=== PATIENT | male | born 1990 | race Hispanic/Latino ===

== ENCOUNTER 2017-08-03 03:52 | Inpatient (IN) | payer MEDICAID ==
[2017-08-03 04:01] VITALS: O2SAT 97
--- NOTE | 2017-08-03 04:09 | C.PDOC ---
History Of Present Illness 27 year old male who presents to the ER as a transfer for psychiatric admission. Patient is medically cleared, denies physical complaints at this time. Chief Complaint (Nursing): Psychiatric Evaluation History Per: Patient History/Exam Limitations: no limitations Onset/Duration Of Symptoms: Days Current Symptoms Are (Timing): Still Present Suicide/Self Injury Attempted (Context): None Modifying Factor(s): None Associated Symptoms: denies: Depression, Suicidal Thoughts, Suicidal Plan Involuntary Hold By: None Recent travel outside of the [place]: No Past Medical History Reviewed: Historical Data, Nursing Documentation, Vital Signs Vital Signs: Last Vital Signs Temp 98 F 08/03/17 03:59 Pulse 84 08/03/17 03:59 Resp 18 08/03/17 03:59 BP 130/86 08/03/17 03:59 Pulse Ox 97 08/03/17 04:09 - Medical History PMH: Bipolar Disorder, Schizophrenia Surgical History: No Surg Hx Family History: States: Unknown Family Hx - Social History Hx Alcohol Use: Yes Hx Substance Use: No - Immunization History Hx Tetanus Toxoid Vaccination: No Hx Influenza Vaccination: No Hx Pneumococcal Vaccination: No Review Of Systems Constitutional: Negative for: Fever, Chills Gastrointestinal: Negative for: Nausea, Vomiting, Diarrhea Psych: Positive for: Other (Bipolar) Physical Exam - Physical Exam Appears: Non-toxic, No Acute Distress Skin: Normal Color, Warm, Dry Head: Atraumatic, Normacephalic Oral Mucosa: Moist Chest: Symmetrical, No Tenderness Cardiovascular: Rhythm Regular, No Murmur Respiratory: Normal Breath Sounds, No Rales, No Rhonchi, No Wheezing Gastrointestinal/Abdominal: Soft, No Tenderness Neurological/Psych: Oriented x3, Normal Speech, Normal Cognition ED Course And Treatment O2 Sat by Pulse Oximetry: 97 (Room Air) Pulse Ox Interpretation: Normal Disposition Discussed With : Gerri Dhillon Doctor Will See Patient In The: Hospital Counseled Patient/Family Regarding: Diagnosis - Disposition Disposition: HOSPITALIZED Disposition Time: 04:09 Condition: STABLE Forms: [facility] (Chinese) - Clinical Impression Clinical Impression: Bipolar disorder - Scribe Statement Porter Koroma All medical record entries made by the Scribe were at my direction and personally dictated by me. I have reviewed the chart and agree that the record accurately reflects my personal performance of the history, physical exam, medical decision making, and the department course for this patient. I have also personally directed, reviewed, and agree with the discharge instructions and disposition.
--- NOTE | 2017-08-03 04:39 | PCM.BM ---
<Benjamin Ricketts - Last Filed: 08/03/17 04:36> Treatment Plan Problems - Problems identified on initial assessmt Bipolar Disorder Date Initiated: 08/03/17 Time Initiated: 04:40 Assessment reference: NA Status: Active Treatment assets and liabiliti Patient Assests: cooperative, ADL independent, physically healthy, good support system Patient Liabilities: imparied memory - Milieu Protocol Maintain good personal hygiene: daily Encourage regular showers, daily Remind patient to perform daily oral care, daily Assist patient to perform ADL's Maintain personal safety: every shift Educate patient to report safety concerns to staff, every shift Monitor environment for contraband/sharps Medication safety: Monitor for expected outcome, potential side effects: every shift, Assess barriers to learning: every shift, Assess readiness for medication education: every shift <Stephanie Echeverria - Last Filed: 08/07/17 11:08> - Diagnosis (1) Bipolar disorder Status: Acute Interventions: 08/07/17 11:09 * Assess/adjust medications daily and /or as needed * See patient on an individual basis 7x/week to assess level of manic behaviors and stability * Discuss risks, benefits, side effects and alternatives of medications <Daily Ruiz - Last Filed: 08/07/17 11:12> Family Contact Family involvement: Family/SO is involved Family contact: Patient agrees to contact (M) Family contact name: Marialuisa Handley-sister Family contacted how many times per week?: 2 - Goals for Treatment Patient goals for treatment: "I need to continue to take my medication." Discharge/Continuing Care - Education Needs Education Needs: Patient Medication, Patient Coping Skills, Patient Aftercare Safety Plan - Discharge Discharge Criteria: Tolerates medication w/o severe side effects, Reduction of target symptoms Discharge to:: Home, With Family - Treatment Team Participation Discussed with Family/SO: Yes Was Patient/Family/SO present at Treatment Team Meeting: Yes
--- NOTE | 2017-08-06 04:28 | PCM.PSYCH ---
Initial Psychiatric Evaluation - Initial Psychiatric Evaluation Legal Status: Capacity Chief Complaint (in patient's own words): MY SISTER ISWORRIED ABOUT ME Patient's Reaction to Hospitalization: IT'S ALL RIGHT HERE History of Present Illness and Precipitating Events: PT RENATA 27 YEAR OLD WHITE SINGLE DOMICILED WITH SISTER UNEMPLOYED WHO SUFFERS FROM BIPOLAR DISORDER PT HAS NEVER ATTEMPTED SUICIDE. HE DENIES ANY TYPE OF HALLUCINATION OR DELUSION. PT HAS STATED HE LIVES IN THE HOSPITAL.. HE HAS NO LEGAL,OR HE STASTES HE HAS AN ADDICTIVE PERSONALITYPTY IS 1ST IN [place]SIBSHIP, MANICAL AND POSSIBLY PARANOID. ON INTERVIEW PT Was ea WITH 3 SISTERSA PER PT EVERY ONE IN FAMILY HAS A SUBSTANCE ABUSE PROBLEM PT STARTED DRINKING ALCOHOL [id number] AND BECAME A PROBLEM SOON THEREAFTER. PT HAS HAD NO DETPXES OR REHABS. WHEN ASKED. PT STATES HE SUPPORTS HIMSELF BY STAYING IN HOSPITAL;S . ON INTERVIEW HE STATED THAT HIS LAST DRINK HE STATED QUITE AWHILE AGO AND THEN SAID YESTERDAY. PT'S SISTER BROUGHT HIM TO THE HOSPITAL BECAUSE HE HAD BECOME CONFRONTATIONAL, MANICAL AND PERHAPS PARANOID.ON IMTERVIEW THE PT HAD TO BE BROUGHT BACK TO TOPIC OFTEN. HE WAS EASILY DISTRACTED AND ANSWERS WERE ILOLGICAL. PT STATES HE HAS HAD SEVERAL HOSPITAL INCLUDING [facility] AND [facility]. Current Medications: Active Medications Generic Name Dose Route Start Last Admin Trade Name Freq PRN Reason Stop Dose Admin Lamotrigine 50 mg 08/03/17 17:00 08/05/17 09:18 Lamictal PO 50 mg DAILY ISIDRA Administration Lorazepam 1 mg 08/03/17 04:42 08/05/17 16:02 Ativan PO 1 mg Q4 PRN Administration Anxiety Quetiapine Fumarate 100 mg 08/04/17 22:00 08/05/17 22:05 Seroquel PO 100 mg HS ISIDRA Administration Past Psychiatric History - Past Psychiatric History Previous Treatment History: Inpatient (HPI) Prior Professional Help: SEE HPI Pertinent Medical Hx (Current Medical&Sleep Prob, Allergies): Allergies Allergy/AdvReac Type Severity Reaction Status Date / Time No Known Allergies Allergy Unverified 08/03/17 03:58 No Known Home Med 08/03/17 Review of Systems - Review of Systems Systems not reviewed;Unavailable: Other - EENT Eyes: UNREMARKABLE Ears: UNREMARKABLE Nose/Mouth/Throat: UNREMARKABLE - Cardiovascular Cardiovascular: UNREMARKABLE - Respiratory Respiratory: UNREMARKABLE - Gastrointestinal Gastrointestinal: UNREMARKABLE - Genitourinary Genitourinary: UNREMARKABLE - Reproductive: Male Reproductive:Male: UNREMARKABLE - Musculoskeletal Musculoskeletal: UNREMARKABLE - Integumentary Integumentary: UNREMARKABLE - Neurological Neurological: UNREMARKABLE - Psychiatric Psychiatric: Confusion, Difficulty Concentrating, Other Additional comments: THOUGHT BLOCKING - Endocrine Endocrine: UNREMARKABLE - Hematologic/Lymphatic Hematologic: UNREMARKABLE Mental Status Examination - Personal Presentation Personal Presentation: Looks younger than stated age - Affect Affect: Broad - Motor Activity Motor Activity: Psychomotor Agitation - Reliability in Providing Information Reliability in Providing Information: Poor, due to alteration in thoughts - Speech Speech: Tangential - Mood Additional comments: EXPANSIVE - Formal Thought Process Formal Thought Process: Paranoia, Other - Obsessions/Compulsions Obsessions: None Compulsions: None - Cognitive Functions Orientation: Person, Situation Sensorium: Alert Attention/Concentration: Easily distracted Abstract Thinking: [place] Estimate of Intelligence: Average Judgement: Imparied, as evidence by: Lack of insight into illness Memory: Recent impaired, as evidenced by: Other, Remote intact, as evidenced by : Ability to recall historical events - Risk Risk: Elopement, Diminished functioning - Strength & Assets Inventory Strength & Assets Inventory: Intelligence, Family support - Limitations Limitations: Decreased memory, recent DSM 5 DX - DSM 5 DSM 5 Diagnosis: BIPOAR DISORDER MRE MANIC SEROQUEL LAMICTAL GROUP, MILIEU AND RECREATIONAL THERAPY INDIVIDUAL SUPPORTIVE PSYCHOTHERAPY LIMIT SETTIN - Recommended/Plan of Treatment Treatment Recommendations and Plan of Treatment: SEE ABOVE Projected ELOS: 10 DAYS Prognosis: FAIR Discharge Plan and Discharge Criteria: NO LONGER MANICAL - Smoking Cessation Smoking Cessation Initiated: No
--- NOTE | 2017-08-06 04:41 | PCM.PYCHPN ---
Psychiatric Progress Note - Psychiatric Progress Note Patient seen today, length of contact: 15 MINS Patient Chief Complaint: NONE Problems Identified/Issues Discussed: ATTEMPTED SYMPTOM MANAGEMENT PT OBSERVED ATTENDING TO INTERNAL STIMULI SINGING CARRYING ON CONVERSATIONS WITH HIMSELF Medical Problems: NOTHING ACUTE Diagnostic Results: REVIWED DSM 5 Symptoms Update: PACING TALKING TO SELF Medication Change: No Medical Record Reviewed: Yes Mental Status Examination - Cognitive Function Orientation: Person, Situation Memory: Impaired Attention: Poor Concentration: Poor Association: Loose Fund of Knowledge: WNL - Mood Mood: Other Additional comments: ELATED - Affect Affect: Broad - Speech Speech: Loud - Formal Thought Process Formal Thought Process: Paranoia, Flight of ideas, Other Psychotic Thoughts and Behaviors: PACING TALKING TO SELF - Suicidal Ideation Suicidal Ideation: No - Homicidal Ideation Homicidal Ideation: No Goal/Treatment Plan - Goal/Treatment Plan Need for Continued Stay: Discharge may exacerbated symptoms Progress Toward Problem(s) and Goals/Treatment Plan: BIPOLAR MANIC SEROQEL LAMICTAL SUPPORTIVE PSYCHOTHERAPY LIMIT SETTING Estimated Date of D/C: 08/13/17 - Smoking Cessation Smoking Cessation Initiated: No
--- NOTE | 2017-08-06 04:49 | PCM.PYCHPN ---
Psychiatric Progress Note - Psychiatric Progress Note Patient seen today, length of contact: 15 MINS Patient Chief Complaint: I LIKE TO SING Problems Identified/Issues Discussed: MEDICATION EDUCATION Medical Problems: NOTHING ACUTE Diagnostic Results: REVIEWED Medication Change: No Medical Record Reviewed: Yes Mental Status Examination - Cognitive Function Orientation: Place, Situation Memory: Impaired Attention: Poor Concentration: WNL Association: WNL Fund of Knowledge: WNL - Mood Additional comments: EXPANSIVE - Affect Affect: Broad - Speech Speech: Appropriate, Loud - Formal Thought Process Formal Thought Process: No Impairment, Paranoia, Flight of ideas, Other Psychotic Thoughts and Behaviors: PACING - Suicidal Ideation Suicidal Ideation: No Goal/Treatment Plan - Goal/Treatment Plan Need for Continued Stay: Discharge may exacerbated symptoms Progress Toward Problem(s) and Goals/Treatment Plan: BIPOLAR MANIC SEROQEL LAMICTAL SUPPORTIVE PSYCHOTHERAPY MED EDUCATION Estimated Date of D/C: 08/13/17 - Smoking Cessation Smoking Cessation Initiated: No
--- NOTE | 2017-08-06 10:40 | PCM.PYCHPN ---
Psychiatric Progress Note - Psychiatric Progress Note Patient seen today, length of contact: 15 MINS Patient Chief Complaint: I am feeling anxious.' Problems Identified/Issues Discussed: Patient seen and evaluated, chart reviewed and discussed with the nurse. Patient remained disorganized and internally preoccupied. Patient still appears paranoid and delusional and he continued pacing back and forth in the hallways. Patient remained isolated, and withdrawn. However, he denied any AVH and denied any depressed moodor SI/HI. He is taking medication and denies any side effects. Supportive therapy and psychoeducation were given. Medication Change: Yes (Start Prolixin) Medical Record Reviewed: Yes Mental Status Examination - Cognitive Function Orientation: Person, Place, Situation, Time Memory: Intact Attention: Poor Concentration: Poor Association: Loose Fund of Knowledge: Poor - Mood Mood: Anxious, Other - Affect Affect: Broad, Constricted - Speech Speech: Appropriate - Formal Thought Process Formal Thought Process: No Impairment, Hallucinations, Delusions, Paranoia, Loosening of associations, Flight of ideas, Other - Suicidal Ideation Suicidal Ideation: No - Homicidal Ideation Homicidal Ideation: No Goal/Treatment Plan - Goal/Treatment Plan Need for Continued Stay: Discharge may exacerbated symptoms, Severe functional impairment Progress Toward Problem(s) and Goals/Treatment Plan: Bipolar disorder manic severe with psychotic features R/O Schizoaffective disorder bipolar type CBT Psychoeducation Supportive therapy, group therapy, individual therapy Start Prolixin 5 mg by mouth twice a day Lamictal 50 mg by mouth PO QHS Trazodone 50 mg by mouth daily at bedtime Seroquel 100 mg PO QHS Estimated Date of D/C: 08/13/17 - Smoking Cessation Smoking Cessation Initiated: No
--- NOTE | 2017-08-07 10:12 | PCM.PYCHPN ---
Psychiatric Progress Note - Psychiatric Progress Note Patient seen today, length of contact: 15 MINS Patient Chief Complaint: I am feeling anxious.' Problems Identified/Issues Discussed: Patient seen and evaluated, chart reviewed and discussed with the nurse. Patient appeared more organized and less internally preoccupied. Patient reports somewhat improvement in his paranoia. But he continued pacing back and forth in the hallways. However, he denied any AVH and denied any depressed mood or SI/HI. He is taking medication and denies any side effects. Supportive therapy and psychoeducation were given. Spoke with the sister, sister mentioned that pt was talking to himself and yelling and cursing in the air, when neighbours called the police. Medication Change: Yes (Increase Prolixin) Medical Record Reviewed: Yes Mental Status Examination - Cognitive Function Orientation: Person, Place, Situation, Time Memory: Intact Attention: WNL Concentration: WNL Association: Loose Fund of Knowledge: Poor - Mood Mood: Anxious, Other - Affect Affect: Broad, Constricted - Speech Speech: Appropriate - Formal Thought Process Formal Thought Process: Delusions, Loosening of associations, Other - Suicidal Ideation Suicidal Ideation: No - Homicidal Ideation Homicidal Ideation: No Goal/Treatment Plan - Goal/Treatment Plan Need for Continued Stay: Discharge may exacerbated symptoms, Severe functional impairment Progress Toward Problem(s) and Goals/Treatment Plan: Bipolar disorder manic severe with psychotic features R/O Schizoaffective disorder bipolar type CBT Psychoeducation Supportive therapy, group therapy, individual therapy Prolixin 10 mg by mouth twice a day Lamictal 50 mg by mouth PO QHS Trazodone 50 mg by mouth daily at bedtime Seroquel 100 mg PO QHS Estimated Date of D/C: 08/13/17 - Smoking Cessation Smoking Cessation Initiated: No
[2017-08-08 07:30] VITALS: RESP 18; TEMP 98.1
--- NOTE | 2017-08-08 10:14 | PCM.PYCHPN ---
Psychiatric Progress Note - Psychiatric Progress Note Patient seen today, length of contact: 15 MINS Patient Chief Complaint: I am feeling better and I want to leave.' Problems Identified/Issues Discussed: Patient seen and evaluated, chart reviewed and discussed with the nurse. Patient reports improvement in his mood and he signed 48 hours notice. He appears much better than before. He appears more organized and less paranoid. He reports improvement in is anxiety and denies any AVH. He denies any depressed mood or SI/HI. He is taking medication and denies any side effects. He needs more time for stabilization. Supportive therapy and psychoeducation were given. Medication Change: Yes (start depakote) Medical Record Reviewed: Yes Mental Status Examination - Cognitive Function Orientation: Person, Place, Situation, Time Memory: Intact Attention: WNL Concentration: WNL Association: WNL Fund of Knowledge: Poor - Mood Mood: Anxious, Other - Affect Affect: Broad, Constricted - Speech Speech: Appropriate - Formal Thought Process Formal Thought Process: No Impairment, Other - Suicidal Ideation Suicidal Ideation: No - Homicidal Ideation Homicidal Ideation: No Goal/Treatment Plan - Goal/Treatment Plan Need for Continued Stay: Discharge may exacerbated symptoms, Severe functional impairment Progress Toward Problem(s) and Goals/Treatment Plan: Bipolar disorder manic severe with psychotic features R/O Schizoaffective disorder bipolar type CBT Psychoeducation Supportive therapy, group therapy, individual therapy Prolixin 10 mg by mouth twice a day d/c Lamictal 50 mg by mouth PO QHS Depakote 250 mg PO BID Trazodone 50 mg by mouth daily at bedtime d/c Seroquel 100 mg PO QHS Estimated Date of D/C: 08/13/17 - Smoking Cessation Smoking Cessation Initiated: No
[2017-08-08 15:54] VITALS: BP 118/83; PULSE 65
[2017-08-08] MEDS: Divalproex 250 mg DR Tab PO SCH (17:33)
--- NOTE | 2017-08-09 09:43 | PCM.PYCHDC ---
Mental Status Examination - Mental Status Examination Orientation: Person, Place, Situation, Time Memory: Intact Mood: Neutral Affect: Constricted Speech: Soft Attention: WNL Concentration: WNL Association: WNL Fund of Knowledge: WNL Formal Thought Process: No Impairment Description of patient's judgement and insight: good, fair Psychotic Thoughts and Behaviors: denies any AVH Suicidal Ideation: No Current Homicidal Ideation?: No Discharge Summary - Discharge Note Reason for Hospitalization: Pt is a 27 year old white single domiciled with sister unemployed who suffers from bipolar disorder pt has never attempted suicide. He denies any type of hallucination or delusion. Pt has stated he lives in the hospital. He has no legal, or . 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 On interview pt was ea with 3 sisters a per pt every one in family has a substance abuse problem pt started drinking alcohol [id number] and became a problem soon thereafter. Pt has had no detoxes or rehabs. When asked. Pt states he supports himself by staying in hospitals . On interview he stated that his last drink he stated quite awhile ago and then said yesterday. Pt's sister brought him to the hospital because he had become confrontational, manic and perhaps paranoid. On interview the pt had to be brought back to topic often. He was easily distracted and answers were illogical. Pt states he has had several hospital including [facility], [place]. Consultations:: List each consultation separately and include: 1. Reason for request. 2. Findings. 3. Follow-up Summary of Hospital Course include:: 1. Description of specific treatment plan utilized for patients during their course of treatmen. 2. Summarize the time- course for resolution of acute symptoms and/or regressed behaviors. 3. Describe issues identified and worked on during hospitalization. 4. Describe medication utilized. 5. Describe medical problems identified and treated. 6. Reassessment of suicide risk Summary of Hospital Course: During the course of his stay, patient (pt) started progressively improving and he no longer remained anxious and irritable/depressed, paranoid and psychotic. He tolerated the medications and denied any adverse effects sweating, tremors or stiffness. He started attending groups and meetings and started socializing. He denied any feelings of hopelessness, helplessness, and worthlessness, denied any problem with the sleep or appetite, denied suicidal ideation or homicidal ideation. Pt denied any auditory or visual hallucinations. Patient remained calm and cooperative and remained compliant with the medications. Patient tolerated the medications very well and denied any side effects. - Diagnosis (1) Bipolar disorder Status: Acute - Final Diagnosis (DSM 5) Condition upon Discharge: STABLE DSM 5: Schizoaffective disorder bipolar type Disposition: HOME/ ROUTINE Follow-up Treatment Plan: Education: Pt was educated and counseled about the risks and benefits of taking and not taking medications. Pt was educated and counseled about the risks of drinking and abusing drugs. Pt was educated and counseled to go to the ER or call 911 if pt develop suicidal ideation or homicidal ideation, worsening of symptoms or severe side effects of the meds. Prescriptions/Medication Reconciliation: Benztropine [Cogentin] 1 mg PO BID PRN #60 tab PRN Reason: Extra Pyramidal Symptoms Divalproex [Depakote DR] 250 mg PO BID #60 tcp fluPHENAZine [Prolixin] 10 mg PO BID #60 tab traZODone [Desyrel] 50 mg PO HS PRN #30 tab PRN Reason: Insomnia - Smoking Cessation Smoking Cessation Medication prescribed: No - Antipsychotic Medications Pt discharged on 2 or more routine antipsychotic medications: No
[2017-08-09] MEDS: Divalproex 250 mg DR Tab PO SCH (10:39)
== END 2017-08-09 13:30 | disposition home or self-care (01) | DRG 430 ==
LOC: C.ER 03:52 → C.5E 04:10 → C.ER 04:12
PROVIDERS: ADMIT Psychiatry & Neurology Psychiatry; ATTEND Psychiatry & Neurology Psychiatry
PROC: GZ3ZZZZ Medication Management (ICD-10-PCS; principal; 2017-08-03)
PROC: GZHZZZZ Group Psychotherapy (ICD-10-PCS; 2017-08-03)
PROC: GZ56ZZZ Individual Psychotherapy, Supportive (ICD-10-PCS; 2017-08-03)
DX: F31.2 Bipolar disorder, current episode manic severe with psychotic features (principal); Z79.899 Other long term (current) drug therapy